=== PATIENT | female | born 1975 | race Hispanic/Latino ===

== ENCOUNTER 2024-08-20 12:21 | Emergency (ER) | payer SELFPAY ==
[~2024-08-20] VITALS: Ht 144.8 cm; Wt 72.6 kg
--- NOTE | 2024-08-20 12:31 | ERN ---
ED Note History of Present Illness Stated Complaint: NECK PAIN Chief Complaint: Back Pain or Injury Time Seen by MD: 12:22 Dictation: PATIENT IS A 48-YEAR-OLD FEMALE HERE WITH COMPLAINTS OF NON TRAUMA POSTERIOR NECK PAIN SHE HAS HAD FOR THREE WEEKS. SHE DENIES FEVER CHILLS NAUSEA VOMITING NEUROVASCULAR CMS INTACT TO ALL EXTREMITIES. SHE STATES SHE HAS HAD NO PRIOR SURGERIES OR INJURIES. STATES SHE WAS DOWN HERE FROM [place] ON A VISIT. SHE JUST GOT BACK FROM [place] HOWEVER WHILE SHE WAS IN [place], SHE DID NOT GO SEE A DOCTOR. Allergies: Coded Allergies: No Known Allergies (Unverified Allergy, Unknown, 08/20/24) Home Meds Active Scripts Cyclobenzaprine HCl (Cyclobenzaprine HCl) 10 Mg Tablet, 1 TAB PO TID for muscle spasms for 10 Days, #30 TAB 0 Refills Prov:REGINALD LYNN NP 08/20/24 Ibuprofen (Ibuprofen 800 mg Tab) 800 Mg Tab, 800 MG PO Q8H PRN for fever or pain, #30 TAB 0 Refills Prov:REGINALD LYNN NP 08/20/24 Methylprednisolone (Medrol) 4 Mg Tab.ds.pk, 1 TAB PO AD for 6 Days, #21 TAB 0 Refills 6 on day 1 then reduce by one tablet daily until gone Prov:REGINALD LYNN NP 08/20/24 Past Medical History History: Not Applicable RN Note Reviewed/Agreed w/PFSH: Yes Review of System Dictation CONSTITUTIONAL: NEGATIVE EXCEPT FOR HPI HEAD/FACE: NEGATIVE EXCEPT FOR HPI EENT: NEGATIVE EXCEPT FOR HPI RESPIRATORY: NEGATIVE EXCEPT FOR HPI GASTROINTESTINAL/ABDOMINAL: NEGATIVE EXCEPT FOR HPI GENITOURINARY: NEGATIVE EXCEPT FOR HPI MUSCULOSKELETAL: NEGATIVE EXCEPT FOR HPI DIFFUSE POSTERIOR NECK PAIN INTEGUMENTARY: NEGATIVE EXCEPT FOR HPI NEUROLOGICAL/PSYCH: NEGATIVE EXCEPT FOR HPI HEMATOLOGIC/LYMPHATIC: NEGATIVE EXCEPT FOR HPI ALL SYSTEMS NEGATIVE, EXCEPT NOTED ABOVE. 13 POINT REVIEW OF SYSTEMS ASSESSED AND ALL NEGATIVE EXCEPT FOR ABOVE. Initial Vital Sign VS Vital Signs Date Time Temp Pulse Resp B/P (MAP) Pulse Ox O2 Delivery O2 Flow Rate FiO2 08/20/24 12:27 98.6 80 16 112/70 96 Room Air 0 08/20/24 12:41 21 Physical Exam Dictation VITAL SIGNS REVIEWED GENERAL APPEARANCE: ALERT, ORIENTED X 3, MODERATE ACUTE DISTRESS, WELL DEVELOPED, NOURISHED. HEAD AND FACE: NON-TRAUMATIC. EYES: PERRL, PINK CONJUNCTIVAS, EYELID NO TRAUMA, ANTERIOR CHAMBER WITH ARCUS SENILIS. EARS: PINNAS INTACT AND NO SIGNS OF TRAUMA OR ERYTHEMA EAR CANALS CLEAR AND NO DISCHARGE TM NO ERYTHEMA NOSE: NO DISCHARGE, NO BLEEDING. OROPHARYNX: MOUTH NORMAL, TONGUE PINK, PHARYNX CLEAR,NO ERYTHEMA, TONSILS NO EXUDATES, NO ABSCESSES NOTED, MUCOUS MEMBRANE MOIST NECK: SUPPLE, NON-TENDER, NO THYROMEGALY, NO MASSES, NO JVD, NO BRUITS BREAST:DEFERRED CHEST:NO TENDERNESS, NO CREPITUS, NO PARADOXICAL MOVEMENT, NO RETRACTIONS LUNGS:CLEAR, WELL-VENTILATED, SYMMETRIC, NO RALES, NO WHEEZING, NO RHONCHI, NO STRIDOR, GOOD BREATH SOUNDS BILATERALLY HEART: REGULAR RATE, REGULAR RHYTHM, NO MURMUR, NO GALLOPS VASCULAR: NO PERIPHERAL EDEMA, ABDOMEN: SOFT, POSITIVE BOWEL SOUNDS, NONDISTENDED, NO GUARDING, NONTENDER, NO REBOUND, NO MASSES NO HEPATOMEGALY, NO SPLENOMEGALY, NO THAKKAR'S SIGN, NO HERNIAS. RECTAL: DEFERRED GENITAL: DEFERRED NEUROLOGICAL: NORMAL SPEECH, MOTOR FUNCTION INTACT, SENSORY FUNCTION INTACT MUSCULOSKELETAL: NECK NONTENDER, FULL RANGE OF MOTION, BACK NONTENDER, FULL RANGE OF MOTION, EXTREMITIES: DIFFUSE POSTERIOR CERVICAL TENDERNESS., FULL RANGE OF MOTION NO STEP-OFFS DECREASED RANGE OF MOTION SECONDARY TO PAIN SKIN: COLOR PINK, DRY, NO TURGOR, NO RASH, NO LACERATIONS, NO ABRASIONS, NO CONTUSIONS. LYMPHATIC: DEFERRED Results (Laboratory/Radiology) Laboratory/Radiology 1335, CERVICAL X-RAY NEGATIVE Labs Reviewed?: Yes ED Course ED Course Orders Procedure Category Date Status Time Ketorolac 60mg/2ml PHA 08/20/24 Complete (Toradol 60mg/2ml) 12:30 Cyclobenzaprine Hcl PHA 08/20/24 Complete (Cyclobenzaprine Hcl 12:30 Cerv Spine 2-3vws RAD 08/20/24 Resulted 12:28 Current Medications Medications (Trade) Dose Ordered Sig/Wolf Route PRN Reason Start Time Stop Time Status Last Admin Dose Admin Cyclobenzaprine HCl (Cyclobenzaprine HCl) 10 mg ONCE ONCE PO 08/20/24 12:30 08/20/24 12:34 DC 08/20/24 13:24 Ketorolac Tromethamine (toRADol 60MG/ 2ML) 60 mg ONCE ONCE IM 08/20/24 12:30 08/20/24 12:34 DC 08/20/24 13:25 Vital Signs Date Time Temp Pulse Resp B/P (MAP) Pulse Ox O2 Delivery O2 Flow Rate FiO2 08/20/24 13:44 98.1 78 18 115/72 96 Room Air* 0 21 08/20/24 12:41 98.6 80 16 112/78 96 Room Air* 0 21 08/20/24 12:27 98.6 80 16 112/70 96 Room Air 0 335 PATIENT DISCHARGED HOME WITH A ACUTE TORTICOLLIS WE WILL BE DISCHARGED HOME WITH IBUPROFEN MEDROL DOSEPAK/CYCLOBENZAPRINE AND TOLD TO SEE HER DOCTOR Medical Decision Making MDM MEDICAL DECISION-MAKING BASED ON EMPIRIC TREATMENT FOR NON TRAUMA NECK PAIN CERVICAL SPINE NEGATIVE DISCHARGED HOME WITH DIAGNOSIS TORTICOLLIS PRESCRIBED IBUPROFEN/FLEXERIL/MEDROL DOSEPAK DX & DISP Disposition: Discharge Departure Impression: Primary Impression: Acute torticollis Condition: Stable Scripts Cyclobenzaprine HCl (Cyclobenzaprine HCl) 10 Mg Tablet 1 TAB PO TID for muscle spasms for 10 Days, #30 TAB 0 Refills Prov: REGINALD LYNN NP 08/20/24 Ibuprofen (Ibuprofen 800 mg Tab) 800 Mg Tab 800 MG PO Q8H PRN for fever or pain, #30 TAB 0 Refills Prov: REGINALD LYNN NP 08/20/24 Methylprednisolone (Medrol) 4 Mg Tab.ds.pk 1 TAB PO AD for 6 Days, #21 TAB 0 Refills 6 on day 1 then reduce by one tablet daily until gone Prov: REGINALD LYNN NP 08/20/24 Additional Instructions: FOLLOW-UP WITH PRIMARY CARE PROVIDER IN 1 TO 2 DAYS. TAKE MEDICATIONS DIRECTED HERE IN THE EMERGENCY ROOM. OKAY TO CONTINUE HOME MEDICATIONS UNLESS OTHERWISE DISCUSSED DURING YOUR VISIT IN THE EMERGENCY ROOM TODAY. RETURN TO YOUR NEAREST EMERGENCY ROOM IF SYMPTOMS WORSEN OR IF THERE IS NO IMPROVEMENT. CALL 911 IF YOU NEED IMMEDIATE ASSISTANCE. TAKE TYLENOL OR MOTRIN [id number] NEEDED AND IF NO CONTRAINDICATIONS ARE PRESENT. INCREASE ORAL HYDRATION. A WOUND CULTURE OR URINE CULTURE WAS ORDERED HERE IN THE EMERGENCY ROOM DEPARTMENT PLEASE FOLLOW-UP WITH PRIMARY CARE PROVIDER AND ADVISE THEM TO GET REPEAT PORTS FROM OUR FACILITY. IF YOU HAD ANY MARYLOU WRAP/SPLINTS THAT WERE APPLIED HERE, PLEASE DO NOT REMOVE THEM UNTIL YOU SEE YOUR PRIMARY CARE OR SPECIALTY. TAKE MEDROL DOSE DIRECTED UNTIL GONE. TAKE IBUPROFEN AND FLEXERIL EVERY8 HOURS WITH FOOD FOR THE NEXT THREE DAYS. WARM COMPRESSES TO NECK THREE TO 4 TIMES A DAY. FOLLOW UP WITH ONE OF THE DOCTORS ON THE LIST PROVIDED YOU IN THE NEXT 2-3 DAYS IF NEEDED. Referrals: SELF,REFERRAL (PCP) Time of Disposition: 13:36 I have reviewed the case, and I agree with, Diagnosis and Plan REGINALD LYNN NP Aug 20, 2024 12:31 CURRY SALGADO DO Aug 22, 2024 07:34
[2024-08-20] MEDS: CYCLOBENZAPRINE HCL 10 MG TABLET PO ONE (13:24)
[2024-08-20] MEDS: ketOROlac 60 MG VIAL (30MG/ML) IM ONE (13:25)
[2024-08-20] MEDS ORDERED: METH4TAB3 PO (13:37)
[2024-08-20] MEDS ORDERED: CYCL-309 PO (13:37)
[2024-08-20] MEDS ORDERED: IBUP-2077 PO (13:37)
[2024-08-20 13:44] VITALS: BP 115/72; PULSE 78; RESP 18; TEMP 98; O2SAT 96
--- NOTE | 2024-08-20 21:43 | HMCIMG ---
CERVICAL SPINE RADIOGRAPHS -4 VIEWS INDICATION: Pain COMPARISON: None FINDINGS: Examination provided for interpretation at 9:40 PM on 08/20/2024. Straightening of the normal lordosis may be related to overlying muscle spasm, underlying degenerative joint disease and/or patient positioning. No acute fracture or malalignment identified. Prevertebral soft tissues are not swollen. The atlanto-dens interval is within normal limits for patient's age. Spot view of the odontoid is without evidence for fracture. Vertebral body heights are within normal limits. Mild anterior endplate osteophytic spurring spares the C2-C3 level and C6-C7 level. Mild facet disease at the C7-T1 level. Visible lung apices are clear. IMPRESSION: No acute fracture or subluxation identified.
== END 2024-08-20 13:44 | disposition home or self-care (01) ==
LOC: EDH 12:21
DX: M43.6 Torticollis (principal)
CPT/HCPCS: 99283; 72040; 96372; J1885